=== PATIENT | male | born 1990 | race Caucasian/White ===

== ENCOUNTER 2018-06-09 10:02 | Inpatient (IN) | payer MEDICAID ==
[2018-06-09 10:40] LABS: % BASOPHILS 0.4 % (0.0-2.0); % LYMPHOCYTES 37.9 % (20.0-50.0); % MONOCYTES 9.7 % (2.0-10.0); HEMATOCRIT 41.1 % (41.0-60); HEMOGLOBIN 13.7 gm/dL (12-16); LYMPHOCYTE ABSOLUTE 1.5 Th/cmm (1.5-3.0); MEAN CELL VOLUME 87.6 fl (80-99); MEAN CORPUSCULAR HEMOGLOBIN 29.3 pg (26.0-30.0); MEAN CORPUSCULAR HGB CONC 33.4 pg (28.0-36.0); MEAN PLATELET VOLUME 7.3 fl; MONOCYTE ABSOLUTE 0.4 Th/cmm (0.3-1.0); PLATELET COUNT 322 Th/cmm (150-400); RED BLOOD COUNT 4.69 Mil/cmm (4.30-5.70); RED CELL DISTRIBUTION WIDTH 11.9 % (11.5-20.0)
[2018-06-09 10:45] LABS: URINE SOURCE CLEAN C
[2018-06-09 10:51] LABS: PROTHROMBIN TIME (TEST) 10.4 SECONDS (9.5-11.5)
--- NOTE | 2018-06-09 10:51 | ED Physician Chart ---
ED Chief Complaint/HPI - Patient Information Date Seen:: 06/09/18 Time Seen:: 10:16 Chief Complaint:: infected left foot History of Present Illness:: this is a 28 yo male type I diabetic with concern about an infection of the left foot that has been getting worse for one month. he also has a history of seizures but denies hypertension and heart disease. Allergies:: Allergies Allergy/AdvReac Type Severity Reaction Status Date / Time No Known Allergies Allergy Verified 06/09/18 10:07 Vitals:: Vital Signs - 8 hr 06/09/18 10:02 Temp 97.9 F HR 75 RR 15 BP 132/74 O2 Sat % 97 Historian:: Patient Review:: Nurse's Note Reviewed ED Review of Systems - Review of Systems General/Constitutional: No fever, No chills, No weight loss, No weakness, No diaphoresis, No edema, No loss of appetite Skin: No skin lesions, No rash, No bruising Head: No headache, No light-headedness Eyes: No loss of vision, No pain, No diplopia ENT: No earache, No nasal drainage, No sore throat, No tinnitus Neck: No neck pain, No swelling, No thyromegaly, No stiffness, No mass noted Cardio Vascular: No chest pain, No palpitations, No PND, No orthopnea, No edema Pulmonary: No SOB, No cough, No sputum, No wheezing GI: No nausea, No vomiting, No diarrhea, No pain, No melena, No hematochezia, No constipation, No hematemesis G/U: No dysuria, No frequency, No hematuria Musculoskeletal: No bone or joint pain, No back pain, No muscle pain, Other ( infected left foot) Endocrine: No polyuria, No polydipsia Psychiatric: No prior psych history, No depression, No anxiety, No suicidal ideation Hematopoietic: No bruising, No lymphadenopathy Allergic/Immuno: No urticaria, No angioedema Neurological: No syncope, No focal symptoms, No weakness, No paresthesia, No headache, No seizure, No dizziness, No confusion, No vertigo ED Past Medical History - Past Medical History Obtainable: Yes Past Medical History: HTN, DM, Seizures Family History: None Social History: Non Smoker, No Alcohol, No Drug Use, Single Surgical History: None Psychiatricy History: None Medication: Reviewed Family Medical History - Family Member Mother History Unknown: Yes Hx Family Cancer: No Hx Family Coronary Artery Disease: No Hx Family Congestive Heart Failure: No Hx Family Hypertension: No Hx Family Stroke: No Hx Family Seizures: No Hx Family Dementia: No Hx Family Hepatitis: No Hx Family Tuberculosis: No ED Physical Exam - Physical Examination General/Constitutional: Awake, Well-developed, well-nourished, Alert, No distress, GCS 15, Non-toxic appearing, Ambulatory Head: Atraumatic Eyes: Lids, conjuctiva normal, PERRL, EOMI Skin: Nl inspection, No rash, No skin lesions, No ecchymosis, Well hydrated, No lymphadenopathy ENMT: External ears, nose nl, Nasal exam nl, Lips, teeth, gums nl Neck: Nontender, Full ROM w/o pain, No JVD, No nuchal rigidity, No bruit, No mass, No stridor Respiratory: Nl effort/Exclusion, Clear to Auscultation, No Wheeze/Rhonchi/Rales Cardio Vascular: RRR, No murmur, gallop, rubs, NL S1 S2 GI: No tenderness/rebounding/guarding, No organomegaly, No hernia, Normal BS's, Nondistended, No mass/bruits, No McBurney tenderness : No CVA tenderness Extremities: No tenderness or effusion, Full ROM, normal strength in all extremities, No edema, Normal digits & nails Other Extremities comments:: there is a large abscess on the bottom of the left foot below the 1st metatarsal bone and draining pus. Neuro/Psych: Alert/oriented, DTR's symmetric, Normal sensory exam, Normal motor strength, Judgement/insight normal, Mood normal, Normal gait, No focal deficits Misc: Normal back, No paraspinal tenderness ED Labs/Radiology/EKG Results - Lab Results Results: Abnormal Lab Results 06/09/18 06/09/18 06/09/18 10:30 10:30 10:30 WBC 3.9 L RBC 4.69 Hgb 13.7 Hct 41.1 MCV 87.6 MCH 29.3 MCHC Differential 33.4 RDW 11.9 Plt Count 322 MPV 7.3 Neutrophils % 51.0 Lymphocytes % 37.9 Monocytes % 9.7 Eosinophils % 1.0 Basophils % 0.4 PT 10.4 INR 1.00 PTT (Actin FS) 24.3 L Sodium 133 L Potassium 4.3 Chloride 97 L Carbon Dioxide 27.8 Anion Gap 12.5 BUN 13 Creatinine 0.7 Est GFR ( Amer) > 60.0 Est GFR (Non-Af Amer) > 60.0 BUN/Creatinine Ratio 18.6 Glucose 417 H Whole Bld Lactic Acid Calcium 9.0 Total Bilirubin 0.6 AST 30 ALT 16 Alkaline Phosphatase 90 Troponin I Total Protein 7.2 Albumin 4.0 L Globulin 3.2 Albumin/Globulin Ratio 1.3 Urine Source Urine Color Urine Clarity Urine pH Ur Specific [place] Urine Protein Urine Glucose (UA) Urine Ketones Urine Blood Urine Nitrate Urine Bilirubin Urine Urobilinogen Ur Leukocyte Esterase Urine RBC Urine WBC Ur Epithelial Cells Urine Bacteria Urine Opiates Screen Urine Methadone Screen Ur Barbiturates Screen Phenytoin Valproic Acid Ur Tricyclics Screen Ur Phencyclidine Scrn Amphetamines Screen U Methamphetamines Scrn U Benzodiazepines Scrn U Cocaine Metab Screen U Cannabinoids Screen 06/09/18 06/09/18 06/09/18 10:30 10:30 10:35 WBC RBC Hgb Hct MCV MCH MCHC Differential RDW Plt Count MPV Neutrophils % Lymphocytes % Monocytes % Eosinophils % Basophils % PT INR PTT (Actin FS) Sodium Potassium Chloride Carbon Dioxide Anion Gap BUN Creatinine Est GFR ( Amer) Est GFR (Non-Af Amer) BUN/Creatinine Ratio Glucose Whole Bld Lactic Acid 1.10 Calcium Total Bilirubin AST ALT Alkaline Phosphatase Troponin I 0.03 Total Protein Albumin Globulin Albumin/Globulin Ratio Urine Source CLEAN C Urine Color YELLOW Urine Clarity CLEAR Urine pH 7.0 Ur Specific [place] 1.010 Urine Protein NEGATIVE Urine Glucose (UA) >=1000 H Urine Ketones NEGATIVE Urine Blood TRACE Urine Nitrate NEGATIVE Urine Bilirubin NEGATIVE Urine Urobilinogen 0.2 Ur Leukocyte Esterase NEGATIVE Urine RBC 0-2 H Urine WBC 0-2 Ur Epithelial Cells RARE Urine Bacteria NONE SEEN Urine Opiates Screen Urine Methadone Screen Ur Barbiturates Screen Phenytoin Valproic Acid Ur Tricyclics Screen Ur Phencyclidine Scrn Amphetamines Screen U Methamphetamines Scrn U Benzodiazepines Scrn U Cocaine Metab Screen U Cannabinoids Screen 06/09/18 06/09/18 06/09/18 10:35 10:44 10:45 WBC RBC Hgb Hct MCV MCH MCHC Differential RDW Plt Count MPV Neutrophils % Lymphocytes % Monocytes % Eosinophils % Basophils % PT INR PTT (Actin FS) Sodium Potassium Chloride Carbon Dioxide Anion Gap BUN Creatinine Est GFR ( Amer) Est GFR (Non-Af Amer) BUN/Creatinine Ratio Glucose Whole Bld Lactic Acid Calcium Total Bilirubin AST ALT Alkaline Phosphatase Troponin I Total Protein Albumin Globulin Albumin/Globulin Ratio Urine Source Urine Color Urine Clarity Urine pH Ur Specific [place] Urine Protein Urine Glucose (UA) Urine Ketones Urine Blood Urine Nitrate Urine Bilirubin Urine Urobilinogen Ur Leukocyte Esterase Urine RBC Urine WBC Ur Epithelial Cells Urine Bacteria Urine Opiates Screen NEGATIVE Urine Methadone Screen NEGATIVE Ur Barbiturates Screen POSITIVE H Phenytoin 14.3 Valproic Acid 26.6 L Ur Tricyclics Screen NEGATIVE Ur Phencyclidine Scrn NEGATIVE Amphetamines Screen NEGATIVE U Methamphetamines Scrn NEGATIVE U Benzodiazepines Scrn NEGATIVE U Cocaine Metab Screen NEGATIVE U Cannabinoids Screen NEGATIVE - Radiology Results Results: chest x-ray = nad left foot x-ray = cellulitis ED Septic Shock - . Is Septic Shock (SBP<90, OR Lactate>4 mmol\L) present?: No - <6hrs of presentation: Vital Signs: Vital Signs - 8 hr 06/09/18 10:02 Temp 97.9 F HR 75 RR 15 BP 132/74 O2 Sat % 97 ED Reassessment (Disposition) - Reassessment Reassessment Condition:: Unchanged - Diagnosis Diagnosis:: abscess of the left foot diabetes mellitus type I seizure disorder - Patient Disposition Discharge/Transfer:: Acute Care w/in this hosp Admitting Medical Physician:: Mitchell Prado Condition at Disposition:: Improved
[2018-06-09 10:53] LABS: ALB/GLOB RATIO 1.3 (1.0-1.8); ALKALINE PHOSPHATASE 90 U/L (34-104); ANION GAP 12.5 (7.0-16.0); BILIRUBIN,TOTAL 0.6 mg/dL (0.3-1.0); BUN - UREA NITROGEN 13 mg/dL (7-25); CARBON DIOXIDE 27.8 mEq/L (21.0-31.0); CHLORIDE 97 mEq/L (98-107); CREATININE - SERUM 0.7 mg/dL (0.7-1.3); GFR AFRICAN-AMERICAN > 60.0 ml/min (>90); GFR NON AFRICAN-AMERICAN > 60.0 ml/min; GLUCOSE 417 mg/dL (70-105); POTASSIUM SERUM 4.3 mEq/L (3.5-5.1); SGOT 30 U/L (13-39); SGPT/ALT 16 U/L (7-52); SODIUM SERUM 133 mEq/L (136-145); TOTAL PROTEIN,SERUM 7.2 gm/dL (6.0-8.3)
[2018-06-09 11:06] LABS: WHITE BLOOD COUNT 3.9 Th/cmm (4.8-10.8)
[2018-06-09 11:09] LABS: AMPHETAMINE URINE NEGATIVE (NEGATIVE); BARBITURATES URINE POSITIVE (NEGATIVE); BENZODIAZEPINES QUAL URINE NEGATIVE (NEGATIVE); CANNABINOID THC NEGATIVE (NEGATIVE); COCAINE METABOLITE QUAL URINE NEGATIVE (NEGATIVE); METHADONE URINE NEGATIVE (NEGATIVE); METHAMPHETAMINES QUAL URINE NEGATIVE (NEGATIVE); OPIATES (MORPHINE) QUAL. URINE NEGATIVE (NEGATIVE); PHENCYCLIDINE (PCP) URINE NEGATIVE (NEGATIVE); TRICYCLICS (TCA) QUAL. URINE NEGATIVE (NEGATIVE)
[2018-06-09 11:10] LABS: URINE BILIRUBIN NEGATIVE (NEGATIVE); URINE BLOOD TRACE (NEGATIVE); URINE GLUCOSE (UA) >=1000 mg/dL (NEGATIVE); URINE KETONE NEGATIVE (NEGATIVE); URINE LEUKOCYTE ESTERASE NEGATIVE (NEGATIVE); URINE MICROSCOPIC INDICATED? YES; URINE NITRATE NEGATIVE (NEGATIVE); URINE PROTEIN NEGATIVE (NEGATIVE); URINE UROBILINOGEN 0.2 E.U./dL (0.2 - 1.0)
--- NOTE | 2018-06-09 11:11 | Diagnostic Imaging Report ---
CHEST X-RAY: AP view INDICATION: Congestion COMPARISON: None FINDINGS: There is no focal consolidation or pleural effusions The heart is normal in size. The osseous structures demonstrate no acute abnormalities. IMPRESSION: No focal consolidation or evidence of CHF.
--- NOTE | 2018-06-09 11:12 | Diagnostic Imaging Report ---
Left foot 3 views Indication: Infection Comparison: none Findings: At bipartite first toe sesamoid versus less likely sesamoid fracture is noted. Large osteophytic spurs are seen along the talar head and neck. No gross erosions identified. No pockets of gas or significant focal soft tissue swelling. There is mild subcutaneous edema. Impression: Bipartite first toe sesamoid versus less likely sesamoid fracture. Please correlate clinically. Mild subcutaneous edema which may be due to cellulitis. No x-ray evidence of osteomyelitis. If clinically indicated MRI may be obtained. Mild degenerative changes with large osteophytic spurs along the talar head and neck dorsally. In the setting of trauma, if clinical symptoms persist and there is continued concern for an occult fracture, follow up exams in 5-7 days is suggested.
[2018-06-09 11:18] LABS: URINE CLARITY CLEAR (CLEAR); URINE COLOR YELLOW
[2018-06-09 11:24] LABS: URINE EPITHELIAL CELLS RARE /lpf (FEW); URINE RBC 0-2 /hpf (0-5); URINE WBC 0-2 /hpf (0-5)
[2018-06-09 11:25] LABS: URINE BACTERIA NONE SEEN /hpf (NONE SEEN)
[2018-06-09] MEDS ORDERED: INSULIN HUMAN REGULAR 100 UNITS/ML UNIT SUBQ ONE (11:56)
[2018-06-09] MEDS ORDERED: INSULIN HUMAN REGULAR 100 UNITS/ML UNIT ONE (11:57)
[2018-06-09] MEDS ORDERED: Albuterol/Ipratropium Neb 3 ML AERS HHN ONE (14:03)
[2018-06-09 15:45] VITALS: BP 139/87
[2018-06-09] MEDS ORDERED: Influenza Vaccine (5 yr & older) 0.5 ml Syr IM ONE (16:56)
--- NOTE | 2018-06-09 19:44 | History & Physical ---
ADMIT DATE: 06/09/2018 PATIENT IDENTIFICATION: A 28-year-old male. CHIEF COMPLAINT: "My right foot hurts." HISTORY OF PRESENT ILLNESS: A 28-year-old male with history of type 1 diabetes mellitus, seizure disorder, takes Xarelto for unknown reason, homeless, presented to Emergency Room after the patient checked out from a local motel stating that the patient has pain on his left foot. The patient was seen by Emergency Room MD and I was advised to admit this patient for left foot cellulitis. The patient was also noted to have elevated blood sugar. The patient is seen by me after admitting the patient 2 hours later and the patient is noted to have eating his dinner. On further questioning, he has callus for a long time and he noticed that callus was a little bit of painful. PAST MEDICAL HISTORY: Remarkable for: 1. Diabetes. 2. Seizure disorder. MEDICATIONS AT HOME: Novolin, Humalog, Vimpat, Depakote. ALLERGIES: The patient is not allergic to medications. SOCIAL HISTORY: The patient is homeless. The patient smokes marijuana. No alcohol or any smoking cigarettes. FAMILY MEDICAL HISTORY: Remarkable for diabetes. REVIEW OF SYSTEMS: The patient denies any headache, blurred vision, double vision, dysphagia, odynophagia, runny nose, stuffy nose, fever, chills, cough, chest pain, shortness of breath, palpitation, dizziness, nausea, vomiting, diarrhea, dysuria, hematuria, hematochezia, or melena. PHYSICAL EXAMINATION: GENERAL: Alert, awake, oriented, lying in the bed. VITAL SIGNS: Temperature 98.3, pulse 60, respiratory rate 18, blood pressure 104/56. HEENT: Normocephalic, atraumatic. Extraocular muscles are intact. Tongue was pink and coated. No rales, no wheezing. No sinus tenderness. NECK: Supple, no JVD, no hepatojugular reflex. No lymphadenopathy, thyromegaly, or carotid bruit. HEART: Both heart sounds are regular. No S3, no S4, no murmur. CHEST AND LUNGS: Equal in expansion, no expiratory wheezing. ABDOMEN: Soft. No guarding, no rigidity. Liver, spleen palpable. No palpable mass. EXTREMITIES: No edema, no cyanosis. Peripherals are +2. No calf tenderness noted. There is callus which is a little soft at the first metatarsal joint area noted. No evidence of any tinea fungus noted, slightly increased temperature noted. NEUROLOGIC: Nonfocal. CLINICAL IMPRESSION: 1. Most likely infected callus on the left foot. 2. Diabetes mellitus, uncontrolled. 3. Seizure disorder. PLAN: The patient is admitted at this time to medical floor. The patient will be given broad spectrum antibiotic. We will have ID to see the patient. Diabetes will be managed. Resume home medications. Seizure precautions. Follow up lab. Check ESR and C-reactive protein. The patient will be discharged to home. The patient will be discharged once the initial workup is completed. JOB# [id number]
[2018-06-09] MEDS: Cefepime 1 GM in Sodium Chloride 0.9% 50 ML IV SCH (21:58)
[2018-06-09] MEDS: INSULIN ASPART SLIDING SCALE 100 UNITS/ML UNIT SUBQ SCH (22:02)
[2018-06-10] MEDS: INSULIN ASPART SLIDING SCALE 100 UNITS/ML UNIT SUBQ SCH ×4 (06:49→21:31)
[2018-06-10] MEDS: INSULIN HUMAN ISOPHANE (NPH) 100 UNITS/ML SUBQ SCH (08:16)
[2018-06-10] MEDS ORDERED: LANCETS MC SCH (09:00)
[2018-06-10] MEDS ORDERED: Non-Formulary Item 1 EA (Lacosamide 100 MG) PO SCH (09:00)
[2018-06-10] MEDS: Cefepime 1 GM in Sodium Chloride 0.9% 50 ML IV SCH ×2 (09:58→21:28)
[2018-06-10] MEDS: APTIOM PO SCH ×2 (10:59→17:00)
--- NOTE | 2018-06-10 16:13 | Progress Notes ---
DATE: 06/10/2018 SUBJECTIVE: The patient seen and examined. The patient is lying in the bed. The patient's blood sugars are elevated. The patient currently denies any chest pain, shortness of breath, palpitation, dizziness, nausea, vomiting. PHYSICAL EXAMINATION: VITAL SIGNS: See nurse's note. HEENT: No facial asymmetry. NECK: Supple, no JVD. HEART: Regular. LUNGS: Clear. ABDOMEN: Soft. EXTREMITIES: No edema. Bilateral strong peripheral pulses noted. Left first metatarsal joint has infected callus with some serosanguineous discharge noted. CLINICAL IMPRESSIONS: 1. Left foot infected callus at first MTP joint area, currently on IV vancomycin and Maxipime. 2. Diabetes mellitus. 3. Seizure disorder. 4. Homelessness. PLAN: 1. Continue IV antibiotics. 2. Seizure medication. 3. Seizure precautions. 4. Await infectious disease input. 5. Diabetes management. 6. General nursing care. 7. Follow lab. 8. Care of plan reviewed and discussed with staff. JOB# [id number]
[2018-06-10] MEDS ORDERED: INSULIN HUMAN ISOPHANE (NPH) 100 UNITS/ML SUBQ SCH (17:00)
[2018-06-10] MEDS ORDERED: Non-Formulary Item 1 EA (Lacosamide [Vimpat] 50 MG) PO SCH (17:00)
--- NOTE | 2018-06-10 23:48 | Consultation ---
Consult Note - Consult Note Service Date: 06/10/18 Referring Physician: Mitchell Prado Consult Note: PHYSICIAN Consultation Note: Date of Admission: 06/09/18 Purpose of Consultation: painful left foot lesion. Chief Complaint: Patient JOVAN LIN was admitted to location Medical/ Surgical Unit I with ABSCESS/CELLULITIS. History of Present Illness: 28-year-old male with history of DM T1, Seizure disorder developed painful lesion on ball of big toe of the left foot. As the pain was unbearable, he came to the ED for evaluation. He was diagnosed cellulitis and ID consult was called for antibiotic management. He also complained that he had to walk for long distances and the shoes were hurting him. He denies any fever and chills. Past Medical History: DM T1. Seizure disorder. Allergies Allergy/AdvReac Type Severity Reaction Status Date / Time No Known Allergies Allergy Verified 06/09/18 10:07 Vital Signs Temp 97.1 F 06/10/18 20:00 Pulse 66 06/10/18 20:00 Resp 16 06/10/18 20:00 BP 121/66 06/10/18 20:00 Pulse Ox 98 06/10/18 20:00 Intake & Output 06/10/18 06/10/18 06/11/18 06:59 18:59 06:59 Intake Total 200 2150 Balance 200 2150 Weight (lbs) 80.739 kg 80.739 kg Intake: Intake, IV Amount 50 550 Cefepime 1 gm In Sodium 50 50 Chloride 0.9% 50 ml @ 100 mls/hr IV Q12HR RUBI Rx#: [id number] Vancomycin HCl 1 gm In 500 Sodium Chloride 0.9% 250 ml @ 165 mls/hr IV Q8HR RUBI Rx#:[id number] Oral 150 1600 Other: # Voids 3 3 # Bowel Movements 0 0 Weight Source Bedscale Bedscale Laboratory Results - last 24 hr 06/10/18 06/10/18 06/10/18 06:40 11:41 12:55 ESR 5 POC Glucose 441 H 235 H 06/10/18 06/10/18 16:36 21:21 ESR POC Glucose 83 143 H Home Medication Medication Instructions Recorded Type Divalproex DR [Depyvette ROJAS] 250 mg PO TID 06/09/18 History Insulin NPH Human Isophane 10 unit SQ QPM 06/09/18 History [Humulin N] Insulin NPH Human Isophane 30 unit SQ QAM 06/09/18 History [Humulin N] Lacosamide [Vimpat] 50 mg PO QPM 06/09/18 History Lacosamide [Vimpat] 100 mg PO QAM 06/09/18 History Lancets [Accu-Chek] 1 each MC BID 06/09/18 History Phenytoin Sodium Extended 200 mg PO QAM 06/09/18 History [Dilantin] Phenytoin Sodium Extended 300 mg PO QPM 06/09/18 History [Dilantin] Rivaroxaban [Xarelto] 15 mg PO BID 06/09/18 History Current Medications Generic Name Dose Route Start Last Admin Trade Name Freq PRN Reason Stop Dose Admin Divalproex Sodium 250 mg 06/09/18 21:00 06/10/18 21:[address] PO 08/08/18 20:59 250 mg TID RUBI Administration Protocol Cefepime HCl 1 gm/ Sodium 50 mls @ 100 mls/hr 06/09/18 21:00 06/10/18 21:28 Chloride IV 08/08/18 20:59 100 mls/hr Q12HR RUBI Administration Vancomycin HCl 1 gm/ Sodium 250 mls @ 165 mls/hr 06/10/18 07:30 06/10/18 22: 06 Chloride IV 08/09/18 07:29 165 mls/hr Q8HR RUBI Administration Insulin Aspart 0 units 06/09/18 21:00 06/10/18 21:31 Novolog Insulin Sliding Scale SUBQ 08/08/18 20:59 Not Given ACHS RUBI Protocol Insulin Human NPH 10 units 06/10/18 17:00 06/10/18 16:56 Novolin N SUBQ 08/09/18 16:59 Not Given QPM RUBI Protocol Insulin Human NPH 30 units 06/10/18 09:00 06/10/18 08:16 Novolin N SUBQ 08/09/18 08:59 30 units QAM RUBI Administration Protocol Lacosamide 100 mg 06/10/18 09:00 06/10/18 08:16 Vimpat PO 08/09/18 08:59 100 mg QAM RUBI Administration Lacosamide 50 mg 06/10/18 17:00 06/10/18 17:02 Vimpat PO 08/09/18 16:59 50 mg QPM RUBI Administration Miscellaneous 1 ea 06/09/18 19:03 Vancomycin Iv Per Pharmacy 08/08/18 19:02 PRN PRN PROTOCOL Aptiom ( 1 06/10/18 10:55 06/10/18 17:00 Eslicarbazepine PO 08/09/18 10:54 1 800mg Tab) BID RUBI Administration Phenytoin 200 mg 06/10/18 09:00 06/10/18 08:16 Dilantin PO 08/09/18 08:59 200 mg QAM RUBI Administration Phenytoin 300 mg 06/10/18 17:00 06/10/18 17:00 Dilantin PO 08/09/18 16:59 300 mg QPM RUBI Administration Rivaroxaban 15 mg 06/09/18 18:30 06/10/18 17:02 Xarelto PO 08/08/18 18:29 15 mg BID RUBI Administration Review of Systems: A 12 point ROS was reviewed with the pertinent positive and negatives noted in the HPI. Social History Smoking Status Smoker, status unknown Family Medical History No significant Physical Exam: General: Comfortable. Well-nourished well-developed. HEENT: Head: NC NT. Oral cavity Moist, pink tongue. Eyes: No pallor. No icterus. Pupil PERRLA. EOMI. Neck: Supple, no JVD or bruit. Cardio: S1 and S2 within normal limits regular rhythm. Respiratory: Vesicular breath sound no crackles or wheezing. Abdominal: Nontender nondistended bowel sounds present. Genital/Urinary: Deferred. Extremities: No cyanosis no clubbing or edema. There is a tender, firm to hard lesion on the ball of the left big toe. At the attempts of needle puncture attempted to get any pus out. There was no pus. Serous fluid came out in drops. Neurological: Alert awake oriented 3. Labs : reveiwed. Assessment: 1. There is a callus on the ball of the big toe of the left foot. I do not see any evidence of infection clinically. 2. Diabetes mellitus type 1. 3. Seizure disorder. 4. Leukopenia. Plan: Surgical consultation. Discontinue antibiotic, if ok with Dr Prado. A drop of serous fluid sent for the cultures. Hepatitis B and C serology. HIV serology. Ultrasound abdomen to rule out hepatomegaly and splenomegaly. I will see the patient as prn basis. Discussed with the patient in detail. Thank you, Dr. Prado for involving me taking care of this patient Signed, Jacoby Brooks M.D. [id number]
[2018-06-11 04:47] LABS: % BASOPHILS 0.9 % (0.0-2.0); % EOSINOPHILS 1.7 % (0.0-5.0); % LYMPHOCYTES 40.7 % (20.0-50.0); % MONOCYTES 11.4 % (2.0-10.0); % NEUTROPHILS 45.3 % (40.0-80.0); EOSINOPHILE ABSOLUTE 0.1 Th/cmm (0.1-0.4); HEMATOCRIT 41.2 % (41.0-60); HEMOGLOBIN 13.7 gm/dL (12-16); LYMPHOCYTE ABSOLUTE 1.8 Th/cmm (1.5-3.0); MEAN CELL VOLUME 87.5 fl (80-99); MEAN CORPUSCULAR HEMOGLOBIN 29.1 pg (26.0-30.0); MEAN CORPUSCULAR HGB CONC 33.3 pg (28.0-36.0); MONOCYTE ABSOLUTE 0.5 Th/cmm (0.3-1.0); NEUTROPHILE ABSOLUTE 1.9 Th/cmm (1.8-8.0); PLATELET COUNT 330 Th/cmm (150-400); RED BLOOD COUNT 4.71 Mil/cmm (4.30-5.70); RED CELL DISTRIBUTION WIDTH 11.9 % (11.5-20.0); WHITE BLOOD COUNT 4.3 Th/cmm (4.8-10.8)
[2018-06-11 05:23] LABS: ALB/GLOB RATIO 1.3 (1.0-1.8); ALBUMIN 3.7 gm/dL (4.2-5.5); ALKALINE PHOSPHATASE 82 U/L (34-104); ANION GAP 12.5 (7.0-16.0); BILIRUBIN,TOTAL 0.4 mg/dL (0.3-1.0); BUN - UREA NITROGEN 11 mg/dL (7-25); CALCIUM SERUM 8.6 mg/dL (8.6-10.3); CARBON DIOXIDE 26.4 mEq/L (21.0-31.0); CHLORIDE 103 mEq/L (98-107); CREATININE - SERUM 0.7 mg/dL (0.7-1.3); GFR AFRICAN-AMERICAN > 60.0 ml/min (>90); GFR NON AFRICAN-AMERICAN > 60.0 ml/min; GLUCOSE 179 mg/dL (70-105); POTASSIUM SERUM 3.9 mEq/L (3.5-5.1); SGOT 20 U/L (13-39); SGPT/ALT 16 U/L (7-52); SODIUM SERUM 138 mEq/L (136-145); TOTAL PROTEIN,SERUM 6.6 gm/dL (6.0-8.3)
[2018-06-11] MEDS: Cefepime 1 GM in Sodium Chloride 0.9% 50 ML IV SCH (09:22)
--- NOTE | 2018-06-11 09:59 | Progress Notes ---
DATE: 06/11/2018 SUBJECTIVE: The patient seen and examined. The patient is lying in the bed. The patient denies any chest pain, shortness of breath, palpitation, dizziness, nausea, vomiting, diarrhea. The patient wants to eat. The patient is scheduled to have ultrasound which was ordered by the Infectious Disease. Blood sugars are under acceptable range as well. PHYSICAL EXAMINATION: VITAL SIGNS: Temperature 97.5, pulse is 60, respiratory rate is 18, and blood pressure 122/54. HEENT: No facial asymmetry. NECK: Supple, no JVD. HEART: Regular, no murmur. CHEST AND LUNGS: Equal in expansion, no expiratory wheezing. ABDOMEN: Soft. No guarding or rigidity. Bowel sounds present. No palpable mass. EXTREMITIES: No edema. Left foot noted to have a callus with no tenderness noted. CLINICAL IMPRESSION: 1. Infected left foot callus at the first metatarsophalangeal joint with significant improvement. 2. Seizure disorder. 3. Diabetes mellitus. PLAN: The patient will be discharged to home with p.o. Augmentin to be continued along with other medication. The patient will see her primary care md in 1 week. JOB# [id number]
[2018-06-11] MEDS: INSULIN ASPART SLIDING SCALE 100 UNITS/ML UNIT SUBQ SCH ×2 (10:29→11:16)
--- NOTE | 2018-06-11 10:31 | Discharge Summary ---
DATE OF DISCHARGE: 06/11/2018 PRINCIPAL DIAGNOSES: 1. Infected left first MTP joint callus. 2. Diabetes mellitus. 3. Seizure disorder. 4. Homelessness. 5. Noncompliance. BRIEF STATEMENT FOR THE REASON FOR ADMISSION: A 28-year-old male presented to Emergency Room for evaluation of right foot pain. The patient was noted to have an infected callus on the left foot. The patient was admitted to the hospital for further treatment. Please refer to my H and P for further information. HOSPITAL COURSE: The patient was admitted to Med/Surg floor. The patient was placed on broad-spectrum antibiotic. Infectious Disease consultation was requested. Diabetes was managed and home medicine was reconciled. Seizure precaution was given. The patient did have an ESR, which was reported 5, which was normal and with normal hemoglobin and have a normal white blood cell count. The patient was seen by Infectious Disease and according to them, the patient does not have any IV antibiotic. The patient is discharged to home after the patient did have ultrasound as per Infectious Disease. The patient will be given same medication as the patient is receiving at home along with Augmentin to be continued for 7 days considering the patient has some discharge coming from the callus area. The patient has been informed to see his primary health care nurse in 1 week. JOB# [id number]
[2018-06-11] MEDS: INSULIN HUMAN ISOPHANE (NPH) 100 UNITS/ML SUBQ SCH (11:12)
[2018-06-11] MEDS: APTIOM PO SCH (11:14)
--- NOTE | 2018-06-11 11:32 | Diagnostic Imaging Report ---
Abdominal ultrasound HISTORY: Hepatosplenomegaly The liver appears enlarged (19.5 cm length). No focal lesions. No intraluminal abnormality seen within the gallbladder. No biliary dilatation. No abnormality seen in the region of the pancreas. The kidneys appear normal bilaterally. Suboptimal delineation of the splenic margins. However this appears to be grossly normal in size. No other definite retroperitoneal or intra-abdominal abnormalities. IMPRESSION: 1. Somewhat limited exam due to bowel gas 2. Suggestion of hepatomegaly.
--- NOTE | 2018-06-11 12:39 | Consultation ---
DATE OF CONSULTATION: 06/11/2018 SURGICAL CONSULT REFERRING PHYSICIAN: Dr. Prado. REASON FOR CONSULTATION: Pain, left foot. Thank you for referring this patient to me. This is a 28-year-old male with known diabetes mellitus and seizure disorder. He claims he takes insulin for his diabetes, but apparently has not been doing this as he should as the blood sugar on admission was 235. He admits to being homeless motel from time to time. The callus in the left foot has been present for about a month. This aggravated because of constant walking in view of his living condition. MEDICATIONS: He takes include Depakote, NovoLog, Vimpat, Aptiom, and Dilantin. He also takes Xarelto, the reason for this is not well explained in view of his past history. LABORATORY STUDIES: On this admission is essentially normal except for the blood sugar 235. There is a question of hepatosplenomegaly and an ultrasound is being done at this point. PHYSICAL EXAMINATION: The patient appears to be alert and oriented, is rather skinny. There is callus at the plantar aspect of the left foot at the fifth MP joint with some tenderness, but no surrounding cellulitis or area to suspect any kind of abscess formation. RECOMMENDATIONS: No surgery is indicated at this point. The patient will need trimming of the callus from time to time. He needs to be referred to a spanish professor for this. We will follow as needed. JOB# [id number]
--- NOTE | 2018-06-11 13:12 | Infectious Disease Prog Note ---
Infectious Disease Subjective - Review of Systems Service Date: 06/11/18 Subjective: No new change, no fever. Infectious Disease Objective - Results Result Diagrams: 06/11/18 04:00 06/11/18 04:00 Recent Labs: Laboratory Last Values WBC 4.3 Th/cmm (4.8-10.8) L 06/11/18 04:00 RBC 4.71 Mil/cmm (4.30-5.70) 06/11/18 04:00 Hgb 13.7 gm/dL (12-16) 06/11/18 04:00 Hct 41.2 % (41.0-60) 06/11/18 04:00 MCV 87.5 fl (80-99) 06/11/18 04:00 MCH 29.1 pg (26.0-30.0) 06/11/18 04:00 MCHC Differential 33.3 pg (28.0-36.0) 06/11/18 04:00 RDW 11.9 % (11.5-20.0) 06/11/18 04:00 Plt Count 330 Th/cmm (150-400) 06/11/18 04:00 MPV 7.0 fl 06/11/18 04:00 Neutrophils % 45.3 % (40.0-80.0) 06/11/18 04:00 Lymphocytes % 40.7 % (20.0-50.0) 06/11/18 04:00 Monocytes % 11.4 % (2.0-10.0) H 06/11/18 04:00 Eosinophils % 1.7 % (0.0-5.0) 06/11/18 04:00 Basophils % 0.9 % (0.0-2.0) 06/11/18 04:00 ESR 5 mm/hr (0-20) 06/10/18 12:55 PT 10.4 SECONDS (9.5-11.5) 06/09/18 10:30 INR 1.00 (0.5-1.4) 06/09/18 10:30 PTT (Actin FS) 24.3 SECONDS (26.0-38.0) L 06/09/18 10:30 Sodium 138 mEq/L (136-145) 06/11/18 04:00 Potassium 3.9 mEq/L (3.5-5.1) 06/11/18 04:00 Chloride 103 mEq/L (98-107) 06/11/18 04:00 Carbon Dioxide 26.4 mEq/L (21.0-31.0) 06/11/18 04:00 Anion Gap 12.5 (7.0-16.0) 06/11/18 04:00 BUN 11 mg/dL (7-25) 06/11/18 04:00 Creatinine 0.7 mg/dL (0.7-1.3) 06/11/18 04:00 Est GFR ( Amer) > 60.0 ml/min (>90) 06/11/18 04:00 Est GFR (Non-Af Amer) > 60.0 ml/min 06/11/18 04:00 BUN/Creatinine Ratio 15.7 06/11/18 04:00 Glucose 179 mg/dL (70-105) H 06/11/18 04:00 POC Glucose 335 MG/DL (70 - 105) H 06/11/18 10:53 Whole Bld Lactic Acid 1.10 mmol/L (0.60-1.99) 06/09/18 10:30 Calcium 8.6 mg/dL (8.6-10.3) 06/11/18 04:00 Total Bilirubin 0.4 mg/dL (0.3-1.0) 06/11/18 04:00 AST 20 U/L (13-39) 06/11/18 04:00 ALT 16 U/L (7-52) 06/11/18 04:00 Alkaline Phosphatase 82 U/L (34-104) 06/11/18 04:00 Troponin I 0.03 ng/mL (0.01-0.05) 06/09/18 10:30 Total Protein 6.6 gm/dL (6.0-8.3) 06/11/18 04:00 Albumin 3.7 gm/dL (4.2-5.5) L 06/11/18 04:00 Globulin 2.9 gm/dL 06/11/18 04:00 Albumin/Globulin Ratio 1.3 (1.0-1.8) 06/11/18 04:00 TSH 1.32 uIU/ml (0.34-5.60) 06/09/18 10:30 Urine Source CLEAN C 06/09/18 10:35 Urine Color YELLOW 06/09/18 10:35 Urine Clarity CLEAR (CLEAR) 06/09/18 10:35 Urine pH 7.0 (4.6 - 8.0) 06/09/18 10:35 Ur Specific [place] 1.010 (1.005-1.030) 06/09/18 10:35 Urine Protein NEGATIVE mg/dL (NEGATIVE) 06/09/18 10:35 Urine Glucose (UA) >=1000 mg/dL (NEGATIVE) H 06/09/18 10:35 Urine Ketones NEGATIVE mg/dL (NEGATIVE) 06/09/18 10:35 Urine Blood TRACE (NEGATIVE) 06/09/18 10:35 Urine Nitrate NEGATIVE (NEGATIVE) 06/09/18 10:35 Urine Bilirubin NEGATIVE (NEGATIVE) 06/09/18 10:35 Urine Urobilinogen 0.2 E.U./dL (0.2 - 1.0) 06/09/18 10:35 Ur Leukocyte Esterase NEGATIVE (NEGATIVE) 06/09/18 10:35 Urine RBC 0-2 /hpf (0-5) H 06/09/18 10:35 Urine WBC 0-2 /hpf (0-5) 06/09/18 10:35 Ur Epithelial Cells RARE /lpf (FEW) 06/09/18 10:35 Urine Bacteria NONE SEEN /hpf (NONE SEEN) 06/09/18 10:35 Vancomycin Trough 13.7 ug/mL (5-10) H 06/11/18 04:00 Urine Opiates Screen NEGATIVE (NEGATIVE) 06/09/18 10:35 Urine Methadone Screen NEGATIVE (NEGATIVE) 06/09/18 10:35 Ur Barbiturates Screen POSITIVE (NEGATIVE) H 06/09/18 10:35 Phenytoin 14.3 ug/ml (10.0-20.0) 06/09/18 10:45 Valproic Acid 26.6 ug/mL (50.0-100.0) L 06/09/18 10:44 Ur Tricyclics Screen NEGATIVE (NEGATIVE) 06/09/18 10:35 Ur Phencyclidine Scrn NEGATIVE (NEGATIVE) 06/09/18 10:35 Amphetamines Screen NEGATIVE (NEGATIVE) 06/09/18 10:35 U Methamphetamines Scrn NEGATIVE (NEGATIVE) 06/09/18 10:35 U Benzodiazepines Scrn NEGATIVE (NEGATIVE) 06/09/18 10:35 U Cocaine Metab Screen NEGATIVE (NEGATIVE) 06/09/18 10:35 U Cannabinoids Screen NEGATIVE (NEGATIVE) 06/09/18 10:35 - Physical Exam Vitals and I&O: Vital Signs Temp 96.9 F 06/11/18 12:00 Pulse 59 06/11/18 12:00 Resp 18 06/11/18 12:00 BP 121/57 06/11/18 12:00 Pulse Ox 98 06/11/18 12:00 Intake & Output 06/10/18 06/11/18 06/11/18 18:59 06:59 18:59 Intake Total 2150 400 Balance 2150 400 Weight (lbs) 80.739 kg 74.389 kg Intake: Intake, IV Amount 550 300 Cefepime 1 gm In Sodium 50 50 Chloride 0.9% 50 ml @ 100 mls/hr IV Q12HR [facility] Rx#: [id number] Vancomycin HCl 1 gm In 500 250 Sodium Chloride 0.9% 250 ml @ 165 mls/hr IV Q8HR [facility] Rx#:[id number] Oral 1600 100 Other: # Voids 3 3 # Bowel Movements 0 0 Weight Source Bedscale Bedscale Active Medications: Current Medications Divalproex Sodium (Depakote Dr) 250 mg PO TID [facility]; Protocol Stop: 08/08/18 20:59 Last Admin: 06/11/18 11:08 Dose: 250 mg Cefepime HCl 1 gm/ Sodium (Chloride) 50 mls @ 100 mls/hr IV Q12HR [facility] Stop: 08/08/18 20:59 Last Admin: 06/11/18 09:22 Dose: 100 mls/hr Vancomycin HCl 1 gm/ Sodium (Chloride) 250 mls @ 165 mls/hr IV Q8HR [facility] Stop: 08/09/18 07:29 Last Admin: 06/11/18 06:14 Dose: 165 mls/hr Insulin Aspart (Novolog Insulin Sliding Scale) 0 units SUBQ ACHS [facility]; Protocol Stop: 08/08/18 20:59 Last Admin: 06/11/18 11:16 Dose: 8 units Insulin Human NPH (Novolin N) 10 units SUBQ QPM [facility]; Protocol Stop: 08/09/18 16:59 Last Admin: 06/10/18 16:56 Dose: Not Given Insulin Human NPH (Novolin N) 30 units SUBQ QAM [facility]; Protocol Stop: 08/09/18 08:59 Last Admin: 06/11/18 11:12 Dose: 30 units Lacosamide (Vimpat) 100 mg PO QAM [facility] Stop: 08/09/18 08:59 Last Admin: 06/11/18 11:07 Dose: 100 mg Lacosamide (Vimpat) 50 mg PO QPM [facility] Stop: 08/09/18 16:59 Last Admin: 06/10/18 17:02 Dose: 50 mg Miscellaneous (Vancomycin Iv Per Pharmacy) 1 [facility] PRN PRN PRN Reason: PROTOCOL Stop: 08/08/18 19:02 Aptiom ( Eslicarbazepine 800mg Tab) 1 PO BID [facility] Stop: 08/09/18 10:54 Last Admin: 06/11/18 11:14 Dose: 1 Phenytoin (Dilantin) 200 mg PO QAM [facility] Stop: 08/09/18 08:59 Last Admin: 06/11/18 11:08 Dose: 200 mg Phenytoin (Dilantin) 300 mg PO QPM [facility] Stop: 08/09/18 16:59 Last Admin: 06/10/18 17:00 Dose: 300 mg Rivaroxaban (Xarelto) 15 mg PO BID [facility] Stop: 08/08/18 18:29 Last Admin: 06/11/18 11:08 Dose: 15 mg General: no acute distress, well developed, well nourished HEENT: atraumatic, normocephalic, PERRLA, EOMI Neck: supple, no thyromegaly Cardiovascular: S1S2, regular Lungs: clear to auscultation bilaterally, clear to percussion Abdomen: soft, no tender, no distended Extremities: other (callus as seen beg=fore.), no cyanosis, no clubbing, no edema Neurological: awake, alert, oriented Skin: intact - Procedures Procedures: Procedures Procedure Code Date CLOSURE SKIN & SUBCUTANEOUS NEC 86.59 06/30/06 LINEAR REP LID LACER 08.81 05/18/04 RPR F/E/E/N/L/M 2.5 CM/< 35803 06/30/06 Infectious Disease Assmt/Plan - Assessment Assessment: 1. There is a callus on the ball of the big toe of the left foot. I do not see any evidence of infection clinically. 2. Diabetes mellitus type 1. 3. Seizure disorder. 4. Leukopenia 2/2 heaptomegaly. 5. hepatomegaly. - Plan Plan: Pending labs can be followed by primary team. Further w/u as per outpatient. Needs to f/u with podiatry sediment remediation consultant.
== END 2018-06-11 13:40 | disposition home or self-care (01) | DRG 383 ==
LOC: ER 10:02 → MSI 14:25
PROVIDERS: ADMIT Internal Medicine; ATTEND Internal Medicine
DX: L02.612 Cutaneous abscess of left foot (principal); R16.0 Hepatomegaly, not elsewhere classified; G40.909 Epilepsy, unspecified, not intractable, without status epilepticus; I10 Essential (primary) hypertension; E10.9 Type 1 diabetes mellitus without complications; Z59.0 Homelessness; Z79.4 Long term (current) use of insulin; Z83.3 Family history of diabetes mellitus; L84 Corns and callosities; Z91.14 Patient's other noncompliance with medication regimen
CPT/HCPCS: 36415-UA; 71045-TC; 73630-TC-LT; 76700-TC; 80053-TC; 80164-TC; 80185-TC; 80202-TC; 80307; 81001-TC; 82948-90; 83036-90; 83605; 84443-TC; 84484-TC; 85025-TC; 85610-TC; 85652-TC; 85730-TC; 86141-TC; 86706-90; 86803-90; 87070-90; 87075-90; 87205-90; 87340-90; 87341-90; 87389-90; J0692; J0696; J1815; J2001; J3370; J7040